=== PATIENT | female | born 1980 | race Caucasian/White ===

== ENCOUNTER 2022-09-28 10:42 | Emergency (ER) | payer SELFPAY ==
--- NOTE | 2022-09-28 11:01 | XR_ITS ---
WS: [id number] Right knee, 4 views, 09/28/2022 Clinical Data: pain Comparison: None. Findings: No fractures or dislocations are seen. The joint spaces are normal. The patella is intact. The soft t issues are unremarkable. XR/XR knee RT 3V* [id number] Impression: Negative right knee. Kellgren-Nahid Classification: grade 0 (none): definite absence of x-ray nate nges of osteoarthritis
[2022-09-28 11:03] VITALS: BP 156/98; PULSE 73; RESP 16; TEMP 36.7; O2SAT 97; BMI 28.6
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
== END 2022-09-28 11:53 | disposition home or self-care (01) ==
PROVIDERS: Emergency Provider Physician Assistant; PCP Nurse Practitioner Family
DX: S89.91XA Unspecified injury of right lower leg, initial encounter (principal); X50.1XXA Overexertion from prolonged static or awkward postures, initial encounter; Y93.16 Activity, rowing, canoeing, kayaking, rafting and tubing
CPT/HCPCS: 73562; 99283

== ENCOUNTER 2024-01-18 10:51 | Emergency (ER) | payer MEDICAID, SELFPAY ==
[2024-01-18] VITALS (10 sets, daily range): BP systolic 119–185; BP diastolic 74–108; PULSE 59–77; RESP 14–28; TEMP 37; O2SAT 95–99; BMI 29.1
--- NOTE | 2024-01-18 11:00 | ECG_ITS ---
[facility] Test Date: 2024-01-18 Pat Name: Kristy Kasper Department: Room: Gender: Female Support Services Manager: : 1980 Requested By: Daryl Galeana Order Number: [id number] Reading MD: NURYS SARABIA Measurements Intervals [place] Rate: 56 P: 56 MD: 206 QRS: 16 QRSD: 79 T: 48 QT: 391 QTc: 380 Interpretive Statements SINUS BRADYCARDIA POSSIBLE LEFT ATRIAL ENLARGEMENT [-0.1mV P-WAVE IN V1/V2] SEPTAL MYOCARDIAL INFARCTION , OF INDETERMINATE AGE [40+ ms Q WAVE IN V1/V2] No previous ECG available for comparison Electronically Signed On 01-19-2024 18:52:06 CDT by NURYS SARABIA [id number]
--- NOTE | 2024-01-18 11:00 | XRR_ITS ---
PROCEDURE INFORMATION: Exam: XR Chest Exam date and time: 01/18/2024 11:06 AM Age: 43 years old Clinical indication: Cough and dyspnea; Additional info: Dyspnea/cough TECHNIQUE: Imaging protocol: Radiologic exam of the chest. Views: 1 view. COMPARISON: No relevant prior studies available. FINDINGS: Lungs: Unremarkable. No consolidation. Pleural spaces: Unremarkable. No pleural effusion. No pneumothorax. Heart/Mediastinum: Unremarkable. No cardiomegaly. Bones/joints: Unremarkable. Soft tissues: Incidentally noted are bilateral metallic nipple rings XR/XR chest 1V portable [id number] IMPRESSION: No acute findings.
--- NOTE | 2024-01-18 11:14 | W.ED.CHESTPA ---
HPI - Chest Pain General: Chief Complaint: Chest Pain Stated Complaint: chest tightness, blood pressure, headache Time Seen by Provider: 01/18/24 10:59 History of Present Illness: 43-year-old female presents emergency room complaining of chest tightness and discomfort it has been going on for the last week. She is also noticed that she has had an elevated blood pressure. She is not currently on any medications for blood pressure she checked her blood pressure several times at home noted pressures over 200. She has had some chest discomfort as well she previously had some surgery for heart valves which cannot tell me much more specific about that. She has had a nonproductive cough no orthopnea no hemoptysis no history of PE. No known history of coronary artery disease she is not diabetic Associated symptoms: Deny abdominal pain, dyspnea or fever(s) Related Data Previous Rx's Medication Instructions Recorded amlodipine 5 mg tablet 5 mg PO DAILY #30 tabs 01/18/24 amlodipine 5 mg tablet 5 mg PO DAILY #90 tabs 01/21/24 buspirone 7.5 mg tablet 7.5 mg PO BID #60 tabs 01/21/24 doxycycline hyclate 100 mg tablet 100 mg PO BID #14 tabs 01/21/24 Allergies Allergy/AdvReac Type Severity Reaction Status Date / Time codeine Allergy Intermediate ADR-Itching Verified 01/21/24 10:49 Review of Systems Const: Denies: fever(s) or chills Card: Reports: chest pain Resp: Denies: dyspnea GI: Denies: abdominal pain : Denies: dysuria, urinary frequency or urinary urgency Musc: Denies: neck pain or back pain Skin/Breast: Denies: rash Neuro: Reports: headache(s) PFS ED PFSH: Medical History (Updated 01/21/24 @ 11:10 by MIGUEL ÁNGEL Brown) Atypical chest pain Social History Smoking and tobacco/nicotine status: never used tobacco/nicotine Physical Exam Const: GENERAL APPEARANCE: cooperative ORIENTATION/CONSCIOUSNESS: Yes awake, Yes oriented to person, Yes oriented to place and Yes oriented to time HENMT: COMMON NORMALS: normocephalic, atraumatic and hearing grossly normal bilaterally HEAD & SCALP: normocephalic and atraumatic Resp: COMMON NORMALS: normal respiratory effort, No retractions, No use of accessory muscles and clear to auscultation bilaterally AUSCULTATION: clear to auscultation bilaterally Cardio: COMMON NORMALS: regular rate, regular rhythm and No murmurs present (Cardio) RATE: regular rate RHYTHM: regular rhythm GI: COMMON NORMALS: Soft to palpation and No hepatosplenomegaly present AUSCULTATION: Yes normoactive bowel sounds PALPATION: Yes Soft to palpation, No Tenderness to palpation present (GI), No Guarding due to palpation present (GI) and Yes No hepatosplenomegaly present Extremity: COMMON NORMALS: normal to inspection, capillary refill normal, no clubbing, cyanosis or edema, no calf tenderness and no pedal edema Neuro: SENSORIUM/ORIENTATION: Yes oriented to person, Yes oriented to place and Yes oriented to time Skin: COMMON NORMALS: no rashes or lesions noted GENERAL SKIN EXAM: no rashes or lesions noted Course Vital Signs: Vital signs: Vital Signs Temperature 98.6 F 01/18/24 11:00 Pulse Rate 75 01/18/24 14:50 Respiratory Rate 20 H 01/18/24 14:35 Blood Pressure 139/78 01/18/24 14:50 Pulse Oximetry 99 01/18/24 14:50 Oxygen Delivery Me thod Room Air 01/18/24 11:00 MDM - Chest Pain Medical Decision Making Blood pressure significantly elevated will start on amlodipine. Cardiac enzymes normal. Laboratory test did not show any significant abnormality. EKG showed no acute ST changes. Will discharge patient home started on amlodipine and set up outpatient stress testing Medical Records I reviewed the patient's medical records. Lab Data I reviewed the patient's lab results. 01/18/24 11:16 01/18/24 11:16 Radiology Impressions Chest X-Ray 01/18/24 11:00 IMPRESSION: No acute findings. Laboratory Results WBC 5.88 10^3/uL (3.29-11.43) 01/18/24 11:16 RBC 4.72 10^6/uL (3.85-5.65) 01/18/24 11:16 Hgb 14.30 g/dL (11.27-16.99) 01/18/24 11:16 Hct 42.2 % (36-47) 01/18/24 11:16 MCV 89.4 fl (85-98) 01/18/24 11:16 MCH 30.3 pg (27-33) 01/18/24 11:16 MCHC 33.9 g/dL (30-55) 01/18/24 11:16 RDW 11.9 % (12.1-15.1) L 01/18/24 11:16 Plt Count 166 10^3/cmm (157-399) 01/18/24 11:16 MPV 11.6 fL (7.4-10.4) H 01/18/24 11:16 Neut % (Auto) 64.4 % 01/18/24 11:16 Lymph % (Auto) 22.6 % 01/18/24 11:16 [place] % (Auto) 10.9 % 01/18/24 11:16 Eos % (Auto) 1.2 % 01/18/24 11:16 Baso % (Auto) 0.7 % 01/18/24 11:16 Neut # (Auto) 3.79 10^3/uL (1.8-7.7) 01/18/24 11:16 Lymph # (Auto) 1.3 10^3/uL (0.8-4.8) 01/18/24 11:16 [place] # (Auto) 0.6 10^3/uL (0.2-0.9) 01/18/24 11:16 Eos # (Auto) 0.1 10^3/uL (0.0-0.8) 01/18/24 11:16 Baso # (Auto) 0.0 10^3/uL (0.0-0.1) 01/18/24 11:16 Nucleated RBC % (auto) 0 % 01/18/24 11:16 Nucleated RBCs # 0.0 /100WBC 01/18/24 11:16 Sodium 138 mmol/L (136-145) 01/18/24 11:16 Potassium 4.2 mmol/L (3.5-5.1) 01/18/24 11:16 Chloride 102 mmol/L (98-107) 01/18/24 11:16 Carbon Dioxide 24 mmol/L (22-29) 01/18/24 11:16 Anion Gap 16.2 (5-19) 01/18/24 11:16 BUN 6 mg/dL (6-20) 01/18/24 11:16 Creatinine 0.6 mg/dL (0.5-0.9) 01/18/24 11:16 GFR Calculation 108.6 mL/min (90-130) 01/18/24 11:16 Glucose 97 mg/dL (65-115) 01/18/24 11:16 Calculated Osmolality 284 mOsm/kg (285-295) L 01/18/24 11:16 Calcium 8.9 mg/dL (8.5-10.5) 01/18/24 11:16 Total Bilirubin 0.5 mg/dL (0.15-1.2) 01/18/24 11:16 AST 24 U/L (0-32) 01/18/24 11:16 ALT 17 U/L (0-33) 01/18/24 11:16 Alkaline Phosphatase 103 U/L (35-105) 01/18/24 11:16 Troponin T Baseline < 6 ng/L (0-10) 01/18/24 11:16 Troponin T 120 Minute 6.00 ng/L (0-10) 01/18/24 13:18 Delta Troponin T 0.35324 ABS# (0-10) 01/18/24 13:18 Total Protein 7.3 g/dL (6.6-8.7) 01/18/24 11:16 Albumin 4.3 g/dL (3.5-5.2) 01/18/24 11:16 Globulin 3.0 g/dL (1.3-4.6) 01/18/24 11:16 Coronavirus (PCR) Negative (Negative) 01/18/24 12:50 Influenza A (PCR) Negative (Negative) 01/18/24 12:50 Influenza Type B (PCR) Negative (Negative) 01/18/24 12:50 RSV (PCR) Negative (Negative) 01/18/24 12:50 All radiology interpretation(s) finalized by discharge Clincial Decision Support The following clinical decision support tools were used to aid in care of the patient HEART Score -> History: Slightly Suspicous, EKG: Normal, Age: Less than 45 yrs, Risk Factors: 1 or 2 Risk Factors, Troponin: Baseline Trop <16 ng/L. Resulting HEART Score: 1. Discharge Plan Discharge Patient Disposition: Home Clinical Impression: Atypical chest pain, Hypertension Condition: Stable Prescriptions: New amlodipine 5 mg tablet 5 mg PO DAILY Qty: 30 0RF No Action doxycycline hyclate 100 mg tablet 100 mg PO BID Qty: 14 0RF buspirone 7.5 mg tablet 7.5 mg PO BID Qty: 60 6RF amlodipine 5 mg tablet 5 mg PO DAILY Qty: 90 3RF Discharge Orders: Discharge ED (Routine); Ordered 01/18/24 Ordered By: Daryl Blood Referrals: Ronan Garcia, DEICER REPAIRER PNEUMATIC [Primary Care Provider] - Discharge Diet: Usual diet Discharge Activity: Increase activity as tolerated Patient Instructions: Opioid Safety, Pain Management Activity Restrictions/Additional Instructions: Thank you for choosing [facility] for your healthcare needs today. It is very important that you follow up as instructed or that you return to the Emergency Department should you have concerns or if your condition changes or worsens in any way. Your blood pressure was mildly elevated in the emergency room recommend you start a blood pressure was elevated in the emergency room recommend that you start amlodipine 5 mg once daily and follow-up with your primary care doctor to reevaluate your blood pressure. Coding Level of Care Code ED Casino Cashier for Eliezer Morales
[2024-01-18 11:24] LABS: Basophils % 0.7 %; Eosinophils # 0.1 10^3/uL (0.0-0.8); Eosinophils % 1.2 %; Hematocrit 42.2 % (36-47); Lymphocytes # 1.3 10^3/uL (0.8-4.8); Lymphocytes % 22.6 %; Mean Corpuscular HGB Conc 33.9 g/dL (30-55); Mean Corpuscular Hemoglobin 30.3 pg (27-33); Mean Corpuscular Volume 89.4 fl (85-98); Mean Platelet Volume 11.6 fL (7.4-10.4); Monocytes # 0.6 10^3/uL (0.2-0.9); Monocytes % 10.9 %; Neutrophils # 3.79 10^3/uL (1.8-7.7); Neutrophils % 64.4 %; Nucleated Red Blood Cells % 0 %; Platelet Count 166 10^3/cmm (157-399); Red Blood Count 4.72 10^6/uL (3.85-5.65); Red Cell Distribution Width 11.9 % (12.1-15.1); White Blood Count 5.88 10^3/uL (3.29-11.43)
[2024-01-18] MEDS: hyDRALAzine 20 mg/mL INJ 1 mL 10 MG IVP (11:34)
[2024-01-18 11:41] LABS: Alanine Aminotransferase 17 U/L (0-33); Albumin Level 4.3 g/dL (3.5-5.2); Alkaline Phosphatase 103 U/L (35-105); Aspartate Amino Transferase 24 U/L (0-32); Blood Urea Nitrogen 6 mg/dL (6-20); Calcium 8.9 mg/dL (8.5-10.5); Carbon Dioxide 24 mmol/L (22-29); Chloride 102 mmol/L (98-107); Creatinine Clr Calc Pharmacy 124.5752; Glomerular Filtration Rate 108.6 mL/min (90-130); Glucose 97 mg/dL (65-115); Osmolality Calculated 284 mOsm/kg (285-295); Sodium 138 mmol/L (136-145); Total Bilirubin 0.5 mg/dL (0.15-1.2); Total Protein 7.3 g/dL (6.6-8.7); Troponin(5th) Baseline < 6 ng/L (0-10)
[2024-01-18 11:42] LABS: Anion Gap 16.2 (5-19)
[2024-01-18 11:43] LABS: Potassium 4.2 mmol/L (3.5-5.1)
--- NOTE | 2024-01-18 13:17 | ECG_ITS ---
[facility] Test Date: 2024-01-18 Pat Name: Kristy Kasper Department: Room: Gender: Female Financial Planner: : 1980 Requested By: Daryl Galeana Order Number: [id number] Reading MD: NURYS SARABIA Measurements Intervals [place] Rate: 66 P: 33 LA: 219 QRS: 12 QRSD: 91 T: 49 QT: 411 QTc: 432 Interpretive Statements SINUS RHYTHM WITH FIRST DEGREE AV BLOCK POSSIBLE LEFT ATRIAL ENLARGEMENT [-0.1mV P-WAVE IN V1/V2] Compared to ECG 01/18/2024 10:58:08 First degree AV block now present Sinus bradycardia no longer present Myocardial infarct finding no longer present Electronically Signed On 01-19-2024 18:57:33 CDT by NURYS SARABIA [email or web address] [email or web address]/[id number]
[2024-01-18 13:41] LABS: Covid PCR NEGATIVE (Negative); Influenza A NEGATIVE (Negative); Influenza B NEGATIVE (Negative); Respiratory Syncytial Virus Ce NEGATIVE (Negative)
[2024-01-18 13:44] LABS: Troponin 5 2HR Delta 0.00001 ABS# (0-10)
== END 2024-01-18 14:53 | disposition home or self-care (01) ==
PROVIDERS: Emergency Provider Family Medicine; PCP Nurse Practitioner Family
DX: R07.89 Other chest pain (principal); I10 Essential (primary) hypertension
CPT/HCPCS: 0241U; 71045; 80053; 84484; 85025; 93005; 99285; J0360

== ENCOUNTER → 2024-08-19 11:57 | Outpatient (BNVA) | payer MEDICAID, SELFPAY | PROVIDERS: PCP Nurse Practitioner Family; Visit Provider Obstetrics & Gynecology | DX: N87.9 Dysplasia of cervix uteri, unspecified (principal) | CPT/HCPCS: 87624 ==

== ENCOUNTER → 2024-09-02 13:24 | Outpatient (BNVA) | payer MEDICAID, SELFPAY | PROVIDERS: PCP Nurse Practitioner Family; Visit Provider Obstetrics & Gynecology | DX: N92.6 Irregular menstruation, unspecified (principal); R93.89 Abnormal findings on diagnostic imaging of other specified body structures; N83.291 Other ovarian cyst, right side | CPT/HCPCS: 76830 ==

== ENCOUNTER 2024-10-13 09:16 | Day surgery (SDC) | payer MEDICAID, SELFPAY ==
[2024-10-13] VITALS (8 sets, daily range): BP systolic 107–157; BP diastolic 73–94; PULSE 49–64; RESP 14–18; TEMP 36.1–36.6; O2SAT 93–98; BMI 34.2
--- NOTE | 2024-10-13 00:46 | W.PM.OPSFHP ---
Same Day Surgery H&P Indication for Procedure/HPI DATE OF PROCEDURE: October 13, 2024 CHIEF COMPLAINT/INDICATIONFOR SURGICAL PROCEDURE: abnormal uterine bleeding PREOP DIAGNOSIS: abnormal uterine bleeding PLANNED PROCEDURE: Operation Date: 10/13/24 10:55 Proposed Procedures p Hysteroscopy w/ Endometrial Sampling 63003, R10.2, N87.9(Not Applicable) - Imtiaz Olivarez MD s possible endometrial polypectomy(Not Applicable) - Imtiaz Olivarez MD 43 y.o. A1 h/o Essure BTL 2012 complained of irregular periods x two years skips weeks to months last few periods have been heavy with occasional clots + spotting with intercourse x two years pelvic sono showed possible endometrial polyp now scheduled for hysteroscopy, endometrial sampling, possible endometrial polypectomy Medications/Allergies* Allergies/Adverse Reactions Allergy/AdvReac Type Severity Reaction Status Date / Time codeine Allergy Intermediate ADR-Itching Verified 09/14/24 14:54 Pertinent History/Comorbid Conditions* Medical History (Updated 09/09/24 @ 19:04 by Imtiaz Olivarez MD) Atypical chest pain Family History (Updated 08/19/24 @ 09:34 by Brenda Allison RN) Diabetes Father Heart disease Father Hyperlipidemia Mother Hypertension Mother Brother Social History Smoking and tobacco/nicotine status: current every day tobacco/nicotine user Alcohol intake: never Substance/Drug Use: never Adopted: No Caregiver/support person: No Lives independently: No Household members: spouse and significant other Marital status: service: No Current occupational status: unemployed and disabled Sexually active: Yes Do you think of yourself as: Straight/Heterosexual Current gender identity: Female Pertinent Exam Findings alert, oriented x 3, clear to auscultation bilaterally and regular rate & rhythm Pertinent Data Pap 08-19-24 NILM, negative HPV Pelvic sono 09-02-24 normal uterus Endometrium 1.5 cm Possible 2.3 cm endometrial polyp Normal ovaries Recommendations Surgery/Procedure today Coding Level of Care Code Acute Code for Chg Fwd
[2024-10-13] MEDS: sodium chloride 0.9% 1,000 ML 30 ML IV (09:43)
[2024-10-13 09:49] LABS: OR HCG Qualitative Urine Negative (Negative)
--- NOTE | 2024-10-13 11:02 | W.PM.OPSUD ---
Surgery/Procedure H&P Update DATE OF PROCEDURE: October 13, 2024 DATE H&P PERFORMED: 09/14/24 H&P UPDATE INFORMATION: I have reviewed H&P completed within last 30 days, I have examined patient prior to procedure and No changes to prior documentation PREOP DIAGNOSIS: abnormal uterine bleeding PLANNED PROCEDURE: Operation Date: 10/13/24 10:55 Proposed Procedures p Hysteroscopy w/ Endometrial Sampling 97592, R10.2, N87.9(Not Applicable) - Imtiaz Olivarez MD s possible endometrial polypectomy(Not Applicable) - Imtiaz Olivarez MD
--- NOTE | 2024-10-13 11:08 | ANES.PREANE2 ---
Pre-Anesthetic Assessment Height/Weight: Height 5 ft 5 in Weight 206 lb Temp Pulse Resp BP Pulse Ox O2 Del Method 97.8 F 54 L 16 157/85 97 Room Air 10/13/24 09:30 10/13/24 09:30 10/13/24 09:30 10/13/24 09:30 10/13/24 09:30 10/13/24 09:30 Preop Diagnosis: abnormal uterine bleeding Operation Date: 10/13/24 10:55 Proposed Procedures p Hysteroscopy w/ Endometrial Sampling 57375, R10.2, N87.9(Not Applicable) - Imtiaz Olivarez MD s possible endometrial polypectomy(Not Applicable) - Imtiaz Olivarez MD Was Beta Cecilia taken within 24 hours: N/A Was Clonidine taken within 24 hours: N/A Last intake: Intake Last Liquid Date 10/12/24 Last Liquid Time 22:00 Last Solid Date 10/12/24 Last Solid Time 22:00 Social No alcohol and No tobacco Quit smoking 1 year ago Exam alert, oriented x 3, clear to auscultation bilaterally and regular rate & rhythm Airway Submandibular: within normal limits Cervical ROM: within normal limits Mallampati: Class II Dentition: full Anesthetic Plan ASA status: 2 Anesthesia: General Other: No prior issues with anesthesia NPO since yesterday evening History of hypertension on amlodipine. Preop BP 157/85 Anxiety/depression hCG negative Plan for general anesthesia Medications/Allergies Home Medications ?Medication ?Instructions ?Recorded ?Confirmed ?Last Taken ?Type amlodipine 5 mg tablet 5 mg PO DAILY #90 tabs 01/21/24 10/12/24 10/12/24 Rx alprazolam 0.25 mg tablet 0.25 mg PO BID PRN anxiety #30 tabs 08/20/24 10/12/24 10/13/24 Rx citalopram 20 mg tablet (Celexa) 20 mg PO DAILY #90 tabs 09/10/24 10/12/24 10/13/24 Rx Allergies Allergy/AdvReac Type Severity Reaction Status Date / Time codeine Allergy Intermediate ADR-Itching Verified 09/14/24 14:54 Current Medications Generic Name Dose Route Start Last Admin Trade Name Freq PRN Reason Stop Dose Admin Sodium Chloride 1,000 mls @ 30 mls/hr 10/13/24 09:30 06/03/25 09:43 Sodium Chloride 0.9% IV 10/14/24 09:29 30 mls/hr .Q24H MOHAMUD Administration PFSH Anesthesia Medical History Atypical chest pain Family History Father Diabetes Heart disease Mother Hypertension Hyperlipidemia Brother Hypertension Social History Smoking and tobacco/nicotine status: current every day tobacco/nicotine user Alcohol intake: never Substance/Drug Use: never Adopted: No Caregiver/support person: No Lives independently: No Household members: spouse and significant other Marital status: service: No Current occupational status: unemployed and disabled Sexually active: Yes Do you think of yourself as: Straight/Heterosexual Current gender identity: Female
--- NOTE | 2024-10-13 11:15 | P.OP_ITS ---
Operative Report Date of procedure: October 13, 2024 Pre-op diagnosis: abnormal uterine bleeding Post-op diagnosis: same Post-op findings: one endometrial polyp Minimal endometrial tissue Normal appearing cervix Procedure done: Hysteroscopy Endometrial sampling and polypectomy with Myosure Implants: none Specimens removed/disposition: endometrial tissue Surgeon: Imtiaz Olivarez MD Anesthesia: MAC Estimated blood loss (mL): 0 Complications: none Findings: one endometrial polyp Minimal endometrial tissue Normal appearing cervix Condition: stable Disposition: PACU Brief History: 43 y.o. with abnormal uterine bleeding Procedure: Informed consent signed. Patient was taken to the operating room. Anesthesia was induced. Patient was placed in dorsolithotomy position, prepped and draped for hysteroscopy. A bivalve speculum was placed in the vagina. The cervix and vagina were normal. The anterior lip of the cervix was grasped with a sharp-toothed tenaculum. The cervix was serially dilated with Hegar dilators. The uterus was sounded to 8 cm. A hysteroscope was placed into the endometrial cavity. There was one en dometrial polyp. Minimal endometrial tissue was seen. The endocervical canal was normal. The endometrial cavity was otherwise normal. A Myosure device was then inserted and the endometrial polyp was removed and sent to pathology. Endometrial sampling was also done. The endometrial cavity was seen to be intact. The hysteroscope and Myosure were then removed. Endometrial tissue was sent to pathology. The sharp-toothed tenaculum was removed. There was no bleeding from the endometrial cavity or cervix. The patient was then placed supine and awakened and taken to the PACU. Postop condition: stable EBL: none Sponge and instruments counts were normal x 2 Complications: none
--- NOTE | 2024-10-13 14:04 | ANE.PACU2 ---
Inpatient post-anesthesia follow up: Airway intact: Yes Vital signs: Temperature 97.1 F Pulse Rate 49 Respiratory Rate 14 Blood Pressure 118/79 Pulse Oximetry 93 Oxygen Delivery Me thod Room Air Oxygen Flow Rate 8 Fraction of Inspir ed Oxygen Hydration adequate: Yes Nausea and vomiting: No Pain level: 2 Mental status: Baseline
== END 2024-10-13 14:30 | disposition home or self-care (01) ==
PROVIDERS: PCP Nurse Practitioner Family; Visit Provider Obstetrics & Gynecology
PROC: 0UDB8ZZ Extraction of Endometrium, Via Natural or Artificial Opening Endoscopic (ICD-10-PCS; CPT 58558; 2024-10-13 10:45)
DX: N93.9 Abnormal uterine and vaginal bleeding, unspecified (principal); N84.0 Polyp of corpus uteri; F17.200 Nicotine dependence, unspecified, uncomplicated; I10 Essential (primary) hypertension; F41.8 Other specified anxiety disorders
CPT/HCPCS: 58558; 81025; 88305; A4216; J1100; J1200; J2250; J2405; J2704; J3010; J7030; J9999